=== PATIENT | female | born 1980 ===

== ENCOUNTER 2020-09-09 09:58 | Outpatient (CLI) | payer OTHER ==
--- NOTE | 2020-09-09 22:42 | SLEEP CARE CONSULTATION ---
Information from patient questionnaire entered by Liss Meyer. I have reviewed and concur with the information entered by Liss Meyer. This document represents the service I personally performed and the decisions made by me, Elda Delaney MD, [facility]. History of Present Illness Service Date and Time: 09/09/2020 0958 Reason for Visit: New patient Chief Complaint: reports: Unrefreshed sleep, Frequent awakenings at night Usual bedtime: 9-11 pm Time it takes to fall asleep: 30-90 minutes Snores at night: Yes (sometimes) Observed to quit breathing while asleep: No Sleeps alone due to snoring: No Number of times waking at night: 3-5 Reasons for waking at night: reports: Bathroom, Other (discomfort, noise) Toss, Turn, or Twitch while sleeping: Yes Recalls having dreams: Yes Usually gets out of bed at: 7-8 am Feels refreshed in the morning: No Morning headache: No Sleepy or fatigued during the day: Yes Ever fallen asleep while driving: No Takes day naps: No Dreams during day naps: Yes Prior sleep studies: No Additional HPI information: I had the pleasure of seeing Ms. Lira today regarding the possibility of her having a sleep disorder. As you know, she is a 40 year old lady who complains of frequent awakenings, unrefreshed sleep, and excessive daytime sleepiness. The patient tells me that she normally goes to bed around 9 - 11 pm, and it takes her approximately 30 - 90 minutes to fall asleep. She has been told that she snores loudly and irregularly at night. She has never been observed to stop breathing in her sleep. Her spouse can still sleep in the same bed. She can recall waking up on the average of 3 - 5 times during the night. Most of the time she wakes up because of having to use the bathroom and noises. She has awakened occasionally because of her own snoring, but not choking, or having to gasp for air. There is a lot of tossing and turning in her sleep. She has somniloquy (sleep talking) but not somnambulism (sleep walking). Generally she can recall having dreams. In the morning she usually gets up out of the bed around 7 a.m. (was 8 9 a.m.) not feeling refreshed nor rested. She usually does not have a morning headache. During the day she complains of feeling sleepy and fatigued. Her score on [place] Sleepiness Scale is 8 out of 24. She has never fallen asleep while driving nor has had any accident due to sleepin ess. She usually does not take naps during the day. Upon falling asleep during the day she reports having dreams. She has never had sleep paralysis, experienced cataplexy or symptoms of restless leg syndrome. She reports having impaired concentration during the day. 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 Patient is and lives in [place]. Have you smoked in the past 12 months: No Alcohol use: Yes Alcohol amount and frequency: 2-3 drinks, 3 days a week Caffeine use: Yes Caffeine amount and frequency: every morning Family History Family history of sleep disordered breathing: Yes (brother, dad) Family Hx Sleep Apnea: Father: Snoring, Sibling: Snoring Allergies and Home Medications Drug allergies reviewed: Yes (NKDA) Home medication list reviewed: Yes (albuterol inhaler) Review of Systems Weight gain over past 5 years: 25 Cardiovascular: denies: high blood pressure, palpitations, chest pain, irregular heart rate or pulse, leg or foot swelling, have to sleep sitting up, other Respiratory: denies: shortness of breath, wheeze, sputum production, chronic cough, other Gastrointestinal: denies: heartburn, difficulty swallowing, nausea, vomitting, diarrhea, abdominal pain, other Urinary: denies: incontinence, frequency, urgency, impotence, other Neurological: denies: headaches, seizure, head trauma, disorientation, speech dysfunction, gait or balance problems, fainting or unconsciousness, other Psychiatric: reports: anxiety Ear/Nose/Throat: denies: nasal congestion, sinus problems, nose bleeds, dry mouth/throat, hoarseness, injury to nose, tonsillectomy, wisdom teeth removed, other Endocrine: reports: sluggishness, too hot or cold Musculoskeletal: denies: joint pain, neck pain, back pain, joint swelling, muscle pain or cramping, mobility problems, other Immunologic: denies: sneezing, rash, itching, allergies to food or environment, other Physical Exam Vital signs obtained and entered by: To minimize the risk of COVID-19 exposure, detailed exam was not performed. Height: 5 ft 2 in Weight: 200 lb Body Mass Index: 36.6 BMI Classification: Obese Impression and Plan IMPRESSION: 1. Obstructive Sleep Apnea-Hypopnea Syndrome, as suggested by history of snoring, frequent awakenings during the night, waking up from her own snore, unrefreshed sleep, cognitive impairment, and daytime hypersomnolence. Narrow oropharynx and obesity are common predisposing factors for obstructive sleep apnea-hypopnea syndrome. Pathophysiology of sleep-disordered breathing was discussed. I recommend proceeding to polysomnography to confirm the diagnosis and to assess severity. If she has significant sleep disordered breathing, a manual CPAP titration study will also be performed to find the optimal treatment pressure. I informed the patient of what the sleep studies involve and after some discussion, she agreed to proceed. 2. Insomnia, already improved. The patient used to spend excessive time spent in bed but has recently set the alarm at 7 am. I pointed out to her that her bedtime should be at 11 pm and not at 9 pm. Plan: 1. Schedule a home sleep apnea test (HSAT), and if negative, follow up with an in-laboratory polysomnography. 2. Avoid long distance driving or when feeling sleepy. 3. Avoid alcohol, sedative and muscle relaxant around bedtime. 4. Attempt to lose weight. 5. Maintain a regular wake up time and spend no more than 8 hours in bed at night. Avoid naps. 6. Return in 1 to 2 weeks after the study to discuss results and initiate therapy. Visit Type: In Office Time Spent with Patient (minutes): 15 Provider Statement: I spent 100% of the Face to Face Visit with the patient with greater than 50% spent counseling the patient and coordination of care.
== END 2020-09-09 09:59 | disposition home or self-care (01) ==
LOC: SC 09:58
PROVIDERS: ATTEND Internal Medicine Pulmonary Disease
DX: R06.83 Snoring (principal); G47.8 Other sleep disorders; R41.89 Other symptoms and signs involving cognitive functions and awareness; G47.10 Hypersomnia, unspecified; G47.00 Insomnia, unspecified
CPT/HCPCS: 99203; 99212

== ENCOUNTER 2020-09-23 09:02 | Outpatient (CLI) | payer OTHER | END 2020-09-23 09:03 | disposition home or self-care (01) | LOC: SC 09:02 | PROVIDERS: ATTEND Internal Medicine Pulmonary Disease | DX: G47.33 Obstructive sleep apnea (adult) (pediatric) (principal); R09.02 Hypoxemia; E66.9 Obesity, unspecified; Z68.36 Body mass index [BMI] 36.0-36.9, adult | CPT/HCPCS: 95806 ==

== ENCOUNTER 2020-09-25 12:03 | Outpatient (CLI) | payer OTHER ==
--- NOTE | 2020-09-25 16:13 | MRI Report ---
Examination is alignment PROCEDURE: Ankle LT W/O INDICATIONS: S/P INJURY LATERAL LEFT ANKLE, LEFT ANKLE EFFUSION TECHNIQUE: Noncontrast sagittal T1 spin echo and T2 fast spin echo with fat saturation, axial proton density fas t spin echo and T2 fast spin echo with fat saturation, coronal T1 spin echo and T2 fast spin echo wit h fat saturation through the ankle/hindfoot. COMPARISON: None. FINDINGS: Image quality: Excellent. Bones and joints: No acute fracture. No suspicious osseous lesion of the midfoot or hindfoot bones is present. Mild tibiotalar joint effusion No osteochondral defects. There is diffuse hindfoot and midfoot degenerative spurring and subchondral sclerosis Medial structures: Deltoid ligament intact. Spring ligament intact. Posterior tibialis intact Flexor digitorum longus intact Flexor hallucis longus intact Posterior tibial neurovascular bundle appears normal within the tarsal tunnel, without extrinsic mass effect. Lateral structures: Anterior talofibular ligament intact. Calcaneofibular ligament intact. Posterior talofibular ligament intact. Anterior tibiofibular ligament intact. Posterior tibiofibular ligament intact. Peroneus longus normal Peroneus brevis normal. There is peroneal longus and brevis tenosynovitis Sinus tarsi demonstrates normal fatty signal. Anterior structures: Dorsal talonavicular ligament intact. Tibialis anterior normal Extensor hallucis longus normal. Extensor digitorum longus demonstrate mild thickening with adjacent soft tissue edema and fluid. Ther e is also overlying subcutaneous edema, and this may also involve the lateral extensor retinaculum mi ldly. Posterior and plantar structures: Achilles tendon intact. The medial and lateral bands of the plantar fascia are within normal limits. IMPRESSION: Peroneal longus and brevis tenosynovitis Mild extensor digitorum longus strain with soft tissue edema and tenosynovitis. Overlying adjacent kincaid bcutaneous swelling. There is mild involvement of the lateral extensor retinaculum. Reviewed by: Hudson Vazquez MD on 09/25/2020 4:12 PM PST Approved by: Hudson Vazquez MD on 09/25/2020 4:12 PM PST Station ID: [id number]
== END 2020-09-25 12:04 | disposition home or self-care (01) ==
LOC: DI 12:03
PROVIDERS: ATTEND Podiatrist
DX: M25.472 Effusion, left ankle (principal); S99.922A Unspecified injury of left foot, initial encounter; M76.72 Peroneal tendinitis, left leg; M25.572 Pain in left ankle and joints of left foot; M65.872 Other synovitis and tenosynovitis, left ankle and foot

== ENCOUNTER 2020-09-26 16:39 | Outpatient (CLI) | payer OTHER ==
--- NOTE | 2020-09-26 15:45 | SLEEP CARE CONSULTATION ---
Information from patient questionnaire entered by Liss Meyer. I have reviewed and concur with the information entered by Liss Meyer. This document represents the service I personally performed and the decisions made by me, Vianca Hayes, RN, MSN, [employer]. History of Present Illness Service Date and Time: 09/26/2020 1500 Initial [place] Sleepiness Scale score: 8 (in 2019) Current [place] Sleepiness Scale score: 7 Additional HPI information: Reviewed initial consult: NESSA MONICA returns w for follow up and results of the recently performed home sleep study. I explained the pathophysiology behind obstructive sleep apnea. We then spent quite a bit of time discussing different treatment options. For mild obstructive sleep apnea, surgery and oral appliance are alternatives to nasal CPAP therapy but in moderate or severe cases, nasal CPAP is the most effective and reliable treatment. Because apnea is primarily in supine position, then positional management therapy could be effective. Methods discussed such as positioning with pillows, using a T-shirt with tennis balls in the back, and shown commercial products that have a pillow format on back to prevent supine sleep. I reviewed the impact of weight changes on sleep apnea and strongly recommended losing weight. After some discussion, the patient opted to go with the positional therapy. AASM Non Pap treatment pamphlets will be sent to patient along with snoring / sleep apnea patient education pamphlet. Patient counseled not drink alcohol less than 4 hours before bedtime as it can increase snoring and apnea. Patient was cautioned about risks of drowsy driving until sleepiness symptoms resolve. Patient denies drowsy driving. Sleep Study - Results Type of Sleep Study: Home sleep study Prior sleep studies: No Polysomnography/Home Sleep Study results: Physician Impression: The quality of the study is good. The length of the study is adequate (> 240 minutes). Please also see the tabulated and graphic data. 1. Obstructive Sleep Apnea-Hypopnea (ICD-10 G47.33), mild, with an AHI of 6.5/hr and oliver SaO2 of 87%. During the study, the patient had 12 apneas (12 obstructive, 0 central, 0 mixed) and 40 hypopneas. The longest episode lasted 50.0 seconds. The respiratory events occurred more frequently during supine sleep (supine AHI was 8.3 and non-supine, 1.41). 2. Hypoxemia (ICD-10 R09.02), mild, with the lowest oxygen saturation of 87 % and 1.1 minutes with SaO2 under 90%. Baseline oxygen saturation was normal (Average oxygen saturation was 94%). Allergies and Home Medications Known drug allergies: No Home medication list reviewed: No Review of Systems Review of systems same as previous: Yes Physical Exam Height: 5 ft 2 in Weight: 195 lb Body Mass Index: 35.6 BMI Classification: Obese Impression and Plan 1. Obstructive Sleep Apnea-Hypopnea Syndrome, mild, with lowest oxygen saturation of 87%. Possibly this is the cause of the patients symptoms of unrefreshed sleep, and excessive daytime sleepiness. As mentioned above, the patient will be started on positional therapy. I discussed how better sleep can benefit anxiety. AASM Non Pap treatment pamphlets will be sent to patient along with snoring / sleep apnea patient education pamphlet. A Follow up will be scheduled for 1-2 months to see if therapy is effective in reducing symptoms. Patient also advised of the importance of losing weight in reducing apnea risk and to discuss weight management with PCP. * Positional therapy. * Attempt to lose weight. * send patient education pamphlets. * Avoid alcohol consumption near bedtime. * The patient is again cautioned about driving until sleepiness completely resolves. * Return 1-2 months after starts treatment. I will assess response to therapy and compliance at that time. Visit Type: Telehealth Video Video Type: Kadeem Patient Location: Home Location of Provider: Home Patient agrees and consents to this telehealth visit type: Yes Patient agrees to have their insurance billed: Yes Time Spent with Patient (minutes): 24 Provider Statement: I spent 100% of the Telehealth Video Call with the patient with greater than 50% spent counseling the patient and coordination of care.
== END 2020-09-26 16:40 | disposition home or self-care (01) ==
LOC: SC 16:39
PROVIDERS: ATTEND Nurse Practitioner Family
DX: G47.33 Obstructive sleep apnea (adult) (pediatric) (principal); E66.9 Obesity, unspecified; Z68.35 Body mass index [BMI] 35.0-35.9, adult